=== PATIENT | male | born 1950 | race Caucasian/White ===

== ENCOUNTER 2022-09-17 11:40 | Day surgery (SDC) | payer MEDICARE, OTHER ==
[2022-09-17] MEDS ORDERED: BUPIVACAINE 0.5% VIAL IJ ONE (11:41)
[2022-09-17] MEDS ORDERED: Depo-Medrol 40 MG/ML IM ONE (11:41)
[2022-09-17] MEDS ORDERED: LIDOCAINE HCL 1% 50 MG/5 ML VL PF IJ ONE (11:41)
[2022-09-17 11:48] LABS: POCT GLUCOSE 65 mg/dL (74 to 106)
[2022-09-17] MEDS ORDERED: Lactated Ringers 1,000 ML IV ONE (14:09)
--- NOTE | 2022-09-17 16:24 | XRAY ---
Indication: Left knee injection. Intraoperative fluoroscopy provided for 8 seconds. Single digital spot image submitted for interpretation demonstrates needle tip projecting over the left femur intercondylar notch. Small amount of contrast injected for needle tip placement. Correlate with intraoperative findings/report.
--- NOTE | 2022-09-17 16:26 | XRAY ---
Indication: Right knee injection. Intraoperative fluoroscopy provided for 8 seconds. Single digital spot image submitted for interpretation demonstrates needle tip projecting over the right femur intercondylar notch. Small amount of contrast injected for needle tip placement. Correlate with intraoperative findings/report.
--- NOTE | 2022-09-17 16:30 | XRAY ---
8 seconds of fluoroscopy was used in surgery for a right intra-articular knee injection.
--- NOTE | 2022-09-17 16:30 | XRAY ---
8 seconds of fluoroscopy was used in surgery for a left intra-articular knee injection.
== END 2022-09-17 14:10 | disposition home or self-care (01) ==
LOC: SDC-PAIN 11:40
PROVIDERS: ATTEND Psychiatry & Neurology Pain Medicine
DX: M17.0 Bilateral primary osteoarthritis of knee (principal); E11.9 Type 2 diabetes mellitus without complications; Z79.899 Other long term (current) drug therapy
CPT/HCPCS: 20610; 73560; 76942; 77002; 82947; 93005; J1030; J2001; Q9966

== ENCOUNTER 2023-01-28 15:28 | Day surgery (SDC) | payer MEDICARE, OTHER ==
[2023-01-28] MEDS ORDERED: Depo-Medrol 40 MG/ML IM ONE (15:29)
[2023-01-28] MEDS ORDERED: BUPIVACAINE 0.5% VIAL IJ ONE (15:29)
[2023-01-28] MEDS ORDERED: LIDOCAINE HCL 1% 50 MG/5 ML VL PF IJ ONE (15:29)
--- NOTE | 2023-01-28 22:12 | XRAY ---
Indication: Right knee injection. Intraoperative fluoroscopy provided for 6 seconds. Single digital spot image submitted for interpretation demonstrates needle tip projecting over the right femur intercondylar notch. Small amount of contrast injected for needle tip placement. Correlate with intraoperative findings/report.
--- NOTE | 2023-01-28 22:12 | XRAY ---
Indication: Left knee injection. Intraoperative fluoroscopy provided for 13 seconds. Single digital spot image submitted for interpretation demonstrates needle tip projecting over the left femur intercondylar notch. Small amount of contrast injected for needle tip placement. Correlate with intraoperative findings/report.
--- NOTE | 2023-01-29 08:54 | XRAY ---
6 seconds of fluoroscopy was used in surgery for a right intra-articular knee injection.
--- NOTE | 2023-01-29 08:55 | XRAY ---
13 seconds of fluoroscopy was used in surgery for a left intra-articular knee injection.
== END 2023-01-28 18:18 | disposition home or self-care (01) ==
LOC: SDC-PAIN 15:28
PROVIDERS: ATTEND Psychiatry & Neurology Pain Medicine
DX: M17.0 Bilateral primary osteoarthritis of knee (principal); E11.9 Type 2 diabetes mellitus without complications; Z79.899 Other long term (current) drug therapy
CPT/HCPCS: 20610; 73560; 77002; 82947; J1030; J2001; Q9966

== ENCOUNTER 2023-09-30 14:24 | Day surgery (SDC) | payer MEDICARE, OTHER ==
[2023-09-30] MEDS ORDERED: BUPIVACAINE 0.5% VIAL IJ ONE (14:25)
[2023-09-30] MEDS ORDERED: XYLOCAINE-MPF 1% 5ML SDV IJ ONE (14:25)
[2023-09-30] MEDS ORDERED: Depo-Medrol 40 MG/ML IM ONE (14:25)
--- NOTE | 2023-09-30 19:34 | XRAY ---
Indication: Right knee injection. Intraoperative fluoroscopy provided for 6 seconds. Single digital spot images submitted for interpretation demonstrates needle tip projecting over the right femur intercondylar notch. Small amount of contrast injected for needle tip placement. Correlate with intraoperative findings/report.
--- NOTE | 2023-09-30 19:34 | XRAY ---
Indication: Left knee injection. Intraoperative fluoroscopy provided for 6 seconds. Single digital spot images submitted for interpretation demonstrates needle tip projecting over the left femur intercondylar notch. Small amount of contrast injected for needle tip placement. Correlate with intraoperative findings/report.
--- NOTE | 2023-10-01 08:39 | XRAY ---
6 seconds of fluoroscopy was used in surgery for a left intra-articular knee injection.
--- NOTE | 2023-10-01 08:39 | XRAY ---
6 seconds of fluoroscopy was used in surgery for an intra-articular knee injection.
== END 2023-09-30 18:25 | disposition home or self-care (01) ==
LOC: SDC-PAIN 14:24
PROVIDERS: ATTEND Psychiatry & Neurology Pain Medicine
DX: M17.0 Bilateral primary osteoarthritis of knee (principal); E11.9 Type 2 diabetes mellitus without complications
CPT/HCPCS: 20610; 73560; 77002; 82947; J1030; Q9966

== ENCOUNTER 2024-10-05 15:39 | Day surgery (SDC) | payer MEDICARE, OTHER ==
--- NOTE | 2024-10-05 19:03 | XRAY ---
Indication: Left knee injection. Intraoperative fluoroscopy provided for 6 seconds. Single digital spot image submitted for interpretation demonstrates needle tip projecting over left femur intercondylar notch. Small amount of contrast injected for needle tip placement. Correlate with intraoperative findings/report.
--- NOTE | 2024-10-05 19:03 | XRAY ---
Indication: Right knee injection. Intraoperative fluoroscopy provided for 10 seconds. Single digital spot image submitted for interpretation demonstrates needle tip projecting over right femur intercondylar notch. Small amount of contrast injected for needle tip placement. Correlate with intraoperative findings/report.
--- NOTE | 2024-10-06 08:58 | XRAY ---
10 seconds of fluoroscopy was used in surgery for a right intra-articular knee injection.
--- NOTE | 2024-10-06 08:59 | XRAY ---
6 seconds of fluoroscopy was used in surgery for a left intra-articular knee injection.
== END 2024-10-05 17:25 | disposition home or self-care (01) ==
LOC: SDC-PAIN 15:39
PROVIDERS: ATTEND Psychiatry & Neurology Pain Medicine
DX: M17.0 Bilateral primary osteoarthritis of knee (principal); E11.9 Type 2 diabetes mellitus without complications
CPT/HCPCS: 73560; 77002; 82947